=== PATIENT | male | born 1990 | race Caucasian/White ===

== ENCOUNTER 2017-06-02 12:57 | Emergency (ER) | payer MEDICAID, OTHER ==
[~2017-06-02] VITALS: Ht 172.7 cm; Wt 75.7 kg
[2017-06-02 12:59] VITALS: BP 133/84
[2017-06-02] MEDS ORDERED: FAMOTIDINE 20 MG TABLET ONE (13:41)
[2017-06-02] MEDS ORDERED: FAMOTIDINE 20 MG TABLET PO ONE (14:00)
== END 2017-06-02 14:00 | disposition home or self-care (01) ==
LOC: ED 13:00
DX: T78.40XA Allergy, unspecified, initial encounter (principal); L50.6 Contact urticaria; X58.XXXA Exposure to other specified factors, initial encounter
CPT/HCPCS: 99284; J7512; Q0177